=== PATIENT | female | born 1990 ===

== ENCOUNTER 2017-03-28 21:33 | Emergency (ER) | payer MEDICAID ==
[2017-03-28 21:44] VITALS: BP 133/78; PULSE 80; RESP 18; TEMP 99.6; O2SAT 100
--- NOTE | 2017-03-28 22:24 | ED PDOC ---
HPI: Female Pain Time Seen by Provider: 03/28/17 21:45 Chief Complaint (Nursing): Female Genitourinary Chief Complaint (Provider): 7wks gestation, vaginal spotting History Per: Patient History/Exam Limitations: no limitations Onset/Duration Of Symptoms: Hrs Current Symptoms Are (Timing): Better Quality Of Discomfort: Cramping Additional Complaint(s): 26 y/o female, approx 7 weeks gestation presents with vaginal spotting x 1 hour. Associated suprapubic cramping. Denies fever, nausea/vomiting, chest pain, changes in bowel movements, dysuria, hematuria. Abnormal Vaginal Bleeding: Yes Last Menstral Period: 02/03/17 : 2 Para: 1 Miscarriage: 0 Past Medical History Reviewed: Historical Data, Nursing Documentation, Vital Signs Vital Signs: Last Vital Signs Temp 99.6 F 03/28/17 21:39 Pulse 80 03/28/17 21:39 Resp 18 03/28/17 21:39 BP 133/78 03/28/17 21:39 Pulse Ox 100 03/28/17 21:39 - Medical History PMH: No Chronic Diseases - Surgical History Surgical History: No Surg Hx - Family History Family History: States: No Known Family Hx - Living Arrangements Living Arrangements: With Family - Allergies Allergies/Adverse Reactions: Allergies Allergy/AdvReac Type Severity Reaction Status Date / Time No Known Allergies Allergy Verified 03/28/17 21:52 Review of Systems ROS Statement: Except As Marked, All Systems Reviewed And Found Negative Genitourinary Female: Positive for: Vaginal Bleeding Physical Exam - Reviewed Nursing Documentation Reviewed: Yes Vital Signs Reviewed: Yes - Physical Exam Appears: Positive for: Well, Non-toxic, No Acute Distress Head Exam: Positive for: ATRAUMATIC, NORMAL INSPECTION, NORMOCEPHALIC Skin: Positive for: Normal Color Eye Exam: Positive for: Normal appearance ENT: Positive for: Normal ENT Inspection Cardiovascular/Chest: Positive for: Regular Rate, Rhythm Respiratory: Positive for: Normal Breath Sounds Gastrointestinal/Abdominal: Positive for: Bowel Sounds, Soft, Tenderness ( suprapubic, llq) Pelvic Exam: Positive for: External Exam Normal, Speculum Exam Normal, No Cerv. Motion Tender, Other (exam chaperoned by Marcelina ROCHA). Negative for: Active Bleeding Back: Positive for: Normal Inspection Extremity: Positive for: Normal ROM Neurologic/Psych: Positive for: Alert, Oriented - Laboratory Results Result Diagrams: 03/28/17 22:53 03/28/17 22:53 Urine POC: Positive Urine dip results: Negative for: Leukocyte Esterase, Blood, Nitrate, Ketones - ECG O2 Sat by Pulse Oximetry: 100 Pulse Ox Interpretation: Normal - Progress ED Course And Treament: labs, u/s, urine EXAM: US First Trimester, Transabdominal CLINICAL HISTORY: 26 years old, female; Signs and symptoms; Lmp or gestational age (in weeks): 02/03; Antepartum complications; Other: Spotting; ; Additional info: Approx 7wks gestation , spotting TECHNIQUE: Real-time transabdominal obstetrical ultrasound of the maternal pelvis and a first trimester with image documentation. COMPARISON: No relevant prior studies available. FINDINGS: Gestation: Single live intrauterine gestation. heart rate of 136 beats per minute. [place]-rump length of 1.06 cm, correlating with gestational age of 7 weeks 1 day. Uterus/cervix: No subchorionic hemorrhage. No cervical dilatation or effacement. Ovaries: Normal ovaries. No adnexal masses. Free fluid: No significant free fluid. IMPRESSION: 1. Single live intrauterine gestation. Patient educated on findings, discharged with instructions to follow up Service Officer 2 -3 days. Return to ED for worsening/concerning symptoms. Disposition - Clinical Impression Clinical Impression: Vaginal bleeding in - Patient ED Disposition Is Patient to be Admitted: No Counseled Patient/Family Regarding: Studies Performed, Diagnosis, Need For Followup - Disposition Disposition: Routine/Home Disposition Time: 00:21 Condition: GOOD Instructions: Threatened Miscarriage (ED) Print Language: WELSH
[2017-03-28 22:56] LABS: BASO % 0.5 % (0.0-2.0); EOS # 0.1 K/uL (0.0-0.7); EOS % 1.2 % (0.0-4.0); HEMATOCRIT 32.7 % (34.0-47.0); LYMPH # 2.9 K/uL (1.0-4.3); LYMPH % 32.8 % (20.0-40.0); MEAN CELL VOLUME 75.6 fl (81.0-99.0); MEAN CORPUSCULAR HEMOGLOBIN 24.2 pg (27.0-31.0); MEAN PLATELET VOLUME 7.9 fl (7.2-11.7); MONO # 0.5 K/uL (0.0-0.8); MONO % 6.1 % (0.0-10.0); NEUT # 5.2 K/uL (1.8-7.0); NEUT % 59.4 % (50.0-75.0); NRBC % 0.2 % (0.0-0.0); WHITE BLOOD COUNT 8.8 K/uL (4.8-10.8)
[2017-03-28 23:05] LABS: ALB/GLOB RATIO 1.3 (1.0-2.1); ALKALINE PHOSPHATASE 53 U/L (38-126); ALT/SGPT 41 U/L (9-52); AST/SGOT 27 U/L (14-36); BILIRUBIN,TOTAL 0.3 mg/dl (0.2-1.3); BLOOD UREA NITROGEN 8 mg/dl (7-17); CALCIUM 9.4 mg/dL (8.4-10.2); CARBON DIOXIDE 23 mmol/L (22-30); CHLORIDE 102 mmol/L (98-107); GFR AFRICAN-AMERICAN > 60; GLUCOSE,RANDOM 77 mg/dL (65-105); POTASSIUM 3.5 MMOL/L (3.6-5.0); SODIUM 139 mmol/l (132-148); TOTAL PROTEIN 7.2 G/DL (6.3-8.2)
--- NOTE | 2017-03-29 00:05 | US ---
EXAM: US First Trimester, Transabdominal CLINICAL HISTORY: 26 years old, female; Signs and symptoms; Lmp or gestational age (in weeks): 02/03/17; Antepartum complications; Other: Spotting; ; Additional info: Approx 7wks gestation, spotting TECHNIQUE: Real-time transabdominal obstetrical ultrasound of the maternal pelvis and a first trimester with image documentation. COMPARISON: No relevant prior studies available. FINDINGS: Gestation: Single live intrauterine gestation. heart rate of 136 beats per minute. [place]-rump length of 1.06 cm, correlating with gestational age of 7 weeks 1 day. Uterus/cervix: No subchorionic hemorrhage. No cervical dilatation or effacement. Ovaries: Normal ovaries. No adnexal masses. Free fluid: No significant free fluid. IMPRESSION: 1. Single live intrauterine gestation.
== END 2017-03-29 00:26 | disposition home or self-care (01) ==
LOC: H.ER 21:33
DX: O20.9 Hemorrhage in early pregnancy, unspecified (principal); Z3A.01 Less than 8 weeks gestation of pregnancy